=== PATIENT | female | born 1995 | race Two or more races ===

== ENCOUNTER 2017-12-09 09:56 | Outpatient (RCR) | payer MEDICAID, SELFPAY | END 2017-12-09 23:59 | LOC: NS 09:56 | PROVIDERS: Family Provider Physician Assistant; PCP Physician Assistant; Visit Provider Nurse Practitioner Family | DX: E66.01 Morbid (severe) obesity due to excess calories (principal); Z71.3 Dietary counseling and surveillance | CPT/HCPCS: 97802 ==

== ENCOUNTER 2018-01-06 09:32 | Outpatient (RCR) | payer MEDICAID, SELFPAY | END 2018-01-17 23:59 | LOC: NS 09:32 | PROVIDERS: Family Provider Physician Assistant; PCP Physician Assistant; Visit Provider Nurse Practitioner Family | DX: E66.01 Morbid (severe) obesity due to excess calories (principal); Z71.3 Dietary counseling and surveillance ==

== ENCOUNTER → 2024-12-30 | Outpatient (CLI) | payer MEDICAID, SELFPAY ==
--- NOTE | 2024-12-30 10:25 | MRI_ITS ---
PROCEDURE: LOWER EXT JOINT ONLY (ROUTINE) 12/30/2024 REASON FOR EXAM: PAIN, ASSESS LM TEAR TECHNIQUE: T1, T2, PD, LOWER EXT JOINT ONLY (ROUTINE) Multiplanar and multisequence images were obtained without IV contrast administration. COMPARISON: COMPARISON : None FINDINGS: Bone Marrow: There is no bony contusion or occult fracture. Cruciate ligaments: There is increased T2 signal and attenuation throughout the anterior cruciate ligament with a thinned appearance, with lax components, chronic grade 2-3 sprain. The posterior cruciate appears intact. Collateral ligaments: The medial collateral ligament appears intact. The lateral collateral ligament complex appears intact. There is hemorrhage deep to the medial and lateral head of the gastrocnemius, and superficial to the medial head, with a component of the ill-defined leaking Oakley's cyst. There is a edema and attenuation of the arcuate ligament. Menisci: There is a bucket-handle tear of the posterior horn and posterior body of the lateral meniscus with a displaced component in the anterior joint space. The medial meniscus appears intact. Extensor mechanism: The distal quadriceps and patellar tendons appear intact. Effusion: There is a moderate joint effusion. Cartilage: There is mild chondromalacia in the lateral compartment. MRI/Lower Ext Joint Only (Routine) IMPRESSION: There is increased T2 signal and attenuation throughout the anterior cruciate l igament with a thinned appearance, with lax components, chronic grade 2-3 sprain. There is hemorrhage deep to the medial and lateral head of the gastrocnemius, a nd superficial to the medial head, with a component of the ill-defined leaking Oakley's cyst. There is a edema and attenuation of the arcuate ligament. There is a bucket-handle tear of the posterior horn and posterior body of the l ateral meniscus with a displaced component in the anterior joint space. There is a moderate joint effusion. There is mild chondromalacia in the lateral compartment. Reading Location: [facility]
== END | disposition home or self-care (01) ==
LOC: OPMRI 09:43
PROVIDERS: PCP Physician Assistant; Referring Provider Orthopaedic Surgery Sports Medicine; Visit Provider Orthopaedic Surgery Sports Medicine
DX: M25.561 Pain in right knee (principal)
CPT/HCPCS: 73721

== ENCOUNTER 2025-02-17 05:47 | Day surgery (SDC) | payer MEDICAID, SELFPAY ==
[2025-02-17] VITALS (9 sets, daily range): BP systolic 110–154; BP diastolic 68–95; PULSE 59–71; RESP 12–18; TEMP 2.2–36.5; O2SAT 98–100; BMI 59.8
[2025-02-17 06:21] LABS: Internal QC Validated? YES +Cl - CLEAR BKGD; Pregnancy, Urine Negative Negative; Record Kit Lot#,Urine Preg 0000964736
--- NOTE | 2025-02-17 06:43 | PRE.ANES_ITS ---
ASA Classification* ASA Classification ASA Classification: 3 (morbid Obesity ) Assessment & Plan Anesthesia* Anesthesia Assessment Anesthesia Assessment: Discussed sedation and/or anesthesia options, risks, benefits, and alternatives with patient/parents/legal guardian/POA. Questions invited. The patient/parents/legal guardian/POA seems to understand and agrees to proceed with anesthesia plan. Reviewed the physical assessment, medical history, allergy history and patient home medications list prior to surgery/procedure/anesthetic and documented any changes. Performed airway and anesthesia risk assessments. Anesthesia Type Anesthesia Type: General and Block History Source History Obtained from:: Patient and Chart Anesthesia Focused Assessment* Temperature: 36 F Pulse Rate: 71 Blood Pressure: 124/90 Respiratory Rate: 14 Pulse Ox: 99 Oxygen Delivery Method: Room Air Airway Assessment Mouth opens: >3 cm Mallampati Score: II Teeth Condition: Intact Labs Anesthesia Preop lab: CBC CHEMISTRY COAG Urine Test Negative Negative Today, 06:05 Pre-Assessment Diagnosis/Proposed Procedure Planned Operative Procedure(s): RIGHT KNEE ARTHROSCOPY LATERAL MENISCUS REPAIR,POSS PARTIAL LATERAL MENISCECTOMY,POSS RECONSTRUCTION ACL Anesthesia History Anesthesia History - detail drafter: Anesthesia History - detail drafter Hx Hospitalization No 02/03/25 11:08 Any Problems With Anesthesia No 02/03/25 11:08 Cholinesterase deficiency No 02/03/25 11:08 You/Your Family Experience No 02/03/25 11:08 fever (hyperthermia) with Relationship Recent Exposure to Contagious No 02/17/25 06:40 Disease Does patient have nerve No 02/03/25 11:08 stimulator Patient instructed to have device shut off --Does patient have Pacemaker or ICD? When Was Last Pacemaker Check QUESTION #4 FULL TEXT: You/Your Family Experience fever (hyperthermia) with Anesthesia Last Oral Intake Last Oral intake: Last Oral Intake NPO since Meds taken in AM with sips of water? Meds patient instructed to take am of surgery PONV PONV - detail drafter: PONV - detail drafter Female Yes 02/03/25 11:08 HX of Motion Sickness No 02/03/25 11:08 HX of N/V After Surgery No 02/03/25 11:08 Non-Smoker No 02/03/25 11:08 Duration of Surgery greater Yes 02/03/25 11:08 than 60 minutes Number of Risk Factors 2 02/03/25 11:08 PONV Score Moderate Risk 02/03/25 11:08 Height & Weight Height & Weight: Anesthesia: Height & Weight Height 5 ft 01/07/25 09:48 Respiratory Assessment Respiratory Assessment - detail drafter: Respiratory Tract Infection Hx - detail drafter Hx Respiratory Tract Infection No 02/03/25 11:08 STOP Sleep Apnea STOP Sleep Apnea - detail drafter: STOP Sleep Apnea - detail drafter Hx Hypertension No 02/03/25 11:08 Hx Sleep Apnea No 02/03/25 11:08 CPAP BIPAP Do you snore loudly (louder No 02/03/25 11:08 than talking or can be heard Do you often feel tired/ No 02/03/25 11:08 fatigued/ sleepy during daytime? Has anyone observed you stop No 02/03/25 11:08 breathing during sleep? STOP Results Negative 02/03/25 11:08 QUESTION #5 FULL TEXT : Do you snore loudly (louder than talking or can be heard through closed doors)? Tobacco Use History Tobacco Use History - detail drafter: Tobacco Use History - detail drafter Tobacco Use Smoking Status Current every day smoker 02/03/25 11:08 Hx Tobacco Use Yes 02/03/25 11:08 Years Smoking Packs Smoked per Day Smoking Cessation Date was within the last 15 years Hx Smoking Cessation Date Hx Smoking Cessation Counseling Hematologic Medial History Hematologic Hx - detail drafter: Hematologic Medical Hx - filter press pumper Hx of Blood Transfusion No 02/03/25 11:08 Hx of Transfusion in last 3 No 02/03/25 11:08 Months Date of Last Transfusion (if within last 3 months) Ever experience any problems No 02/03/25 11:08 with transfusion(s)? Specify any problems Hx of Preganancy in last 3 No 02/03/25 11:08 Months Nurse Filling Out Transfusion DSCHRIBER 02/03/25 11:08 & Questions: Date: 02/03/25 02/03/25 11:08 Time: 11:09 02/03/25 11:08 Patient unable to answer at this time (ie. confused, unrespo /Reproduction History /Reproductive History - detail drafter: /Reproductive Hx- detail drafter Hx Now No 02/03/25 11:08 Gestational Age (in weeks): EDC: Hx Hx Para Hx Section SAB No 02/03/25 11:08 Active Medications Active Medications: Current Medications Generic Name Dose Route Start Last Admin Trade Name Freq PRN Reason Stop Dose Admin Cefazolin Sodium 3 gm/ Sodium 115 mls @ 200 mls/hr 02/17/25 07:30 Chloride IV 02/17/25 08:04 INTRAOP ONE Lactated Ringer's 1,000 mls @ 15 mls/hr 02/17/25 06:15 IV .Q48H NEHAL PFSH Medical History Wears glasses Bipolar disorder Depression Marijuana use Arthritis Shortness of breath on exertion Vapes nicotine containing substance History of irregular heartbeat Right ACL tear Chondromalacia, right knee Tear of lateral meniscus of right knee Right knee pain Home Medications ?Medication ?Instructions ?Recorded ?Last Taken ?Type dextromethorphan IR 45 1 tab PO BID 11/24/24 History mg-bupropion ER 105 mg biphasic tablet (Auvelity) lithium carbonate 150 mg capsule 150 mg PO QHS 5 02/15/25 History olanzapine 15 mg tablet 15 mg PO QHS 11/24/24 History Allergy/AdvReac Type Severity Reaction Status Date / Time bee venom protein (honey AdvReac Throat Verified 02/03/25 11:06 bee) (bee sting) Swelling Family History Other Diabetes Surgical History Hx of wisdom tooth extraction History of delivery History of hip surgery Social History household members: children Smoking Status: Former smoker alcohol intake: never Addt'l Information Additional Findings: >4 Mets prior to injury Review of Systems (Anesthesia) ROS Narrative System reviewed and no additional complaints, except as documented. Physical Exam Const alert and oriented x3 Nutritional Appearance: morbidly obese Resp normal respiratory effort and normal air movement Auscultation: clear to auscultation bilaterally Cardio regular rate and regular rhythm Neuro oriented x3 and moves all extremities
[2025-02-17] MEDS: Lactated Ringers 1,000 ML 15 ML IV (06:47)
--- NOTE | 2025-02-17 07:06 | PCM.HP.STD ---
HPI - General HPI Narrative SANCHEZ CASTREJON, is a 30 F who presents for right knee arthroscopy, lateral meniscus repair possible partial lateral meniscectomy, possible anterior cruciate ligament reconstruction. no change to h and p. right knee marked. plan for block. OK to WBAT in brace full extension. plan for asa 81 bid after for vte prophylaxis. rab, post op instructions, narcotic counselling. ok to proceed. no further questions. MR#: [id number] Acct: [id number] Name: SANCHEZ CASTREJON Rep #: [id number] : 1995 Provider: Dr. Gerald Wynn MD Age/Sex: 29/F Location: [facility] [place] Status: Signed Intake Vital Signs 11/24/2508:54 01/07/2509:48 Height 5 ft 5 ft Weight: 297 lb 6 oz 290 lb BMI 58.1 56.6 Intake Visit Reasons: RIGHT KNEE Chief Complaint: Right Knee MRI review Accompanied by: Self Is patient in pain?: Yes Pain scale (1-10): 5 Allergies bee venom protein (honey bee) (bee sting) Adverse Reaction (Verified 01/07/25 09:50) Throat Swelling Medications ?Medication ?Instructions ?Recorded ?Confirmed ?Type dextromethorphan IR 45 tab PO 11/24/24 01/07/25 History mg-bupropion ER 105 mg biphasic tablet (Auvelity) lithium carbonate 150 mg capsule 150 mg PO QHS 11/24/24 01/07/25 History olanzapine 15 mg tablet 15 mg PO QDAY 11/24/24 01/07/25 History Have you fallen in the past year?: No PFSH Medical History Right ACL tear Chondromalacia, right knee Tear of lateral meniscus of right knee Right knee pain Surgical History History of delivery History of hip surgery Family History Other Diabetes Social History household members: children Smoking Status: Former smoker alcohol intake: never HPI RIGHT KNEE Details: This documentation accurately reflects the service provided and the decisions made by me, Dr. Gerald Wynn MD 01/07/25 0852. Part of today?s visit was documented by [ ], acting as scribe. SANCHEZ CASTREJON is a 29 year old F here today for FU R knee MRI. Still feels unstable, giving way. Supplemental Info [facility] [address] [place], [place] [address] Lower Ext Joint Only (Routine) MR#: [id number] Acct: [id number] Name: SANCHEZ CASTREJON Rep #: [id number] : 1995 From: Gregg Matias MD PCP: MARK Curtis Status: REG CLI Study: Lower Ext Joint Only (Routine) Date of Exam: 12/30/24 Exam# [id number] Ordering Dr: Gerald Wynn MD PROCEDURE: LOWER EXT JOINT ONLY (ROUTINE) 12/30/2024 REASON FOR EXAM: PAIN, ASSESS LM TEAR TECHNIQUE: T1, T2, PD, LOWER EXT JOINT ONLY (ROUTINE) Multiplanar and multisequence images were obtained without IV contrast administration. COMPARISON: COMPARISON : None FINDINGS: Bone Marrow: There is no bony contusion or occult fracture. Cruciate ligaments: There is increased T2 signal and attenuation throughout the anterior cruciate ligament with a thinned appearance, with lax components, chronic grade 2-3 sprain. The posterior cruciate appears intact. Collateral ligaments: The medial collateral ligament appears intact. The lateral collateral ligament complex appears intact. There is hemorrhage deep to the medial and lateral head of the gastrocnemius, and superficial to the medial head, with a component of the ill-defined leaking Oakley's cyst. There is a edema and attenuation of the arcuate ligament. Menisci: There is a bucket-handle tear of the posterior horn and posterior body of the lateral meniscus with a displaced component in the anterior joint space. The medial meniscus appears intact. Extensor mechanism: The distal quadriceps and patellar tendons appear intact. Effusion: There is a moderate joint effusion. Cartilage: There is mild chondromalacia in the lateral compartment. MRI/Lower Ext Joint Only (Routine) IMPRESSION: There is increased T2 signal and attenuation throughout the anterior cruciate ligament with a thinned appearance, with lax components, chronic grade 2-3 sprain. There is hemorrhage deep to the medial and lateral head of the gastrocnemius, and superficial to the medial head, with a component of the ill-defined leaking Oakley's cyst. There is a edema and attenuation of the arcuate ligament. There is a bucket-handle tear of the posterior horn and posterior body of the lateral meniscus with a displaced component in the anterior joint space. There is a moderate joint effusion. There is mild chondromalacia in the lateral compartment. Reading Location: [facility] Michelle independently reviewed the imaging. Concur with radiologist report. Coding Level of Care Code Off vis,est,level 4 Diagnoses Right knee pain M25.561 Tear of lateral meniscus of right knee S83.281A Chondromalacia, right knee M94.261 Right ACL tear S83.511A Assessment and Plan Assessment and Plan (1) Right knee pain: Status: Acute Plan: 29-year-old female with right knee lateral meniscus bucket-handle tear, possible ACL tear. This is recommended to be fixed to prevent long-term further tearing of the meniscus as well as degenerative changes and locking up and mechanical symptoms of the knee. Nonsurgical treatment is an option but not recommended here. Surgery would be in the form of a right knee arthroscopy, lateral meniscus repair possible partial lateral meniscectomy, possible anterior cruciate ligament reconstruction (could have been there for years). Explained the recovery associated with this 6 weeks on crutches with extended knee weightbearing in 9 months before return back to sports and other demanding activities. Patient understands wishes to proceed with surgery. Patient has a very elevated BMI this is a risk factor for surgery failing or other problems like VTE. Pros and cons risks and benefits were discussed with the patient including but not limited to infection, pain, stiffness, bleeding, damage to surrounding structures, neurovascular injury, recurrence or retear, failure or wear of hardware or fixation, instability, fracture, deep vein thrombosis and pulmonary embolism, anesthetic risks, , patient dissatisfaction, need for further surgery and other risks. Patient understood and wished to proceed with surgery, and signed the informed consent documentation. (2) Tear of lateral meniscus of right knee: Status: Acute (3) Chondromalacia, right knee: Status: Acute (4) Right ACL tear: Status: Acute Clinical Quality Measures Falls Risk Screening/Assistive Devices Have you fallen in the past year?: No Ortho Exam General General: Yes no acute distress Neurologic: Yes alert and Yes oriented x3 Psychologic: Yes reasonable and appropriate [facility] Medical History Wears glasses Bipolar disorder Depression Marijuana use Arthritis Shortness of breath on exertion Vapes nicotine containing substance History of irregular heartbeat Right ACL tear Chondromalacia, right knee Tear of lateral meniscus of right knee Right knee pain Home Medications ?Medication ?Instructions ?Recorded ?Last Taken ?Type dextromethorphan IR 45 1 tab PO BID 11/24/24 02/15/25 History mg-bupropion ER 105 mg biphasic tablet (Auvelity) lithium carbonate 150 mg capsule 150 mg PO QHS 11/24/24 02/15/25 History olanzapine 15 mg tablet 15 mg PO QHS 11/24/24 02/15/25 History Allergy/AdvReac Type Severity Reaction Status Date / Time bee venom protein (honey AdvReac Throat Verified 02/03/25 11:06 bee) (bee sting) Swelling Family History Other Diabetes Surgical History Hx of wisdom tooth extraction History of delivery History of hip surgery Social History household members: children Smoking Status: Former smoker alcohol intake: never Vital Signs Vital Signs Vital Signs: 02/17/25 06:40 02/17/25 06:42 02/17/25 06:48 Temperature 97.4 F L 36 F L Temperature Source Temporal Pulse Rate 71 71 Respiratory Rate 16 14 Respiratory Pattern Normal Blood Pressure 124/90 H 124/90 H Blood Pressure Mean 101 Blood Pressure Source Monitor Blood Pressure Position Sitting Blood Pressure Location Left Forearm Pulse Ox 100 99 Oxygen Delivery Method Room Air Room Air Weight Weight: 306 lb 7.08 oz Body Mass Index (BMI) 59.8 Results Lab / Micro Data Labs: Laboratory Results - last 24 hr 02/17/25 06:05: Urine Test Negative
[2025-02-17] MEDS: Midazolam 2 MG/2 ML Syringe IV (07:14)
[2025-02-17] MEDS: Cefazolin 1 GM/5 ML Vial 3 GM IV (07:36)
[2025-02-17] MEDS: Lidocaine 1% (5 ml sdv) 5 ML Vial 10 ML IV (07:41)
[2025-02-17] MEDS: Epinephrine (1 mg/ml) 1 MG/ML VIAL (07:55)
[2025-02-17] MEDS: TRANEXAMIC ACID 1,000 MG/10 ML ML 1000 MG IV (08:30)
[2025-02-17] MEDS: fentaNYL 100 MCG/2 ML Ampul IV (08:32)
[2025-02-17] MEDS: dexMEDEtomidine 200 MCG/2 ML ML 40 MCG IV (09:44)
--- NOTE | 2025-02-17 09:48 | EX.PCM.DISCH ---
Discharge Instructions Diet Discharge Diet: No restrictions Activity Discharge Activity: Return to Normal Activity and May Shower Ice area for (Minutes): 10 Weight Bearing Status: Weight bearing as tolerated Lifting Restrictions: keep leg straight in brace for walking, with crutches and brace 6 weeks Keep extremity elevated above heart level: Operative Extremity Dressing / Incision Call your doctor if your incision/area has: Continuous Slow Oozing, Sudden Increased Bleeding, Increased Pain/ Swelling, Increased Redness, Foul Smelling Discharge and Swelling at the incision site Call your doctor if you observe: Fever of 101 or Higher, Coldness, Increased Pain and Numbness or Tingling Change Dressing in: leave in place till F/U Cleanse incision/area with: Do not get Incision Wet Follow Up Care Please Follow Up With: Gerald Wynn MD When: within 2 weeks Test Results: Test results from this visit will be discussed in further detail at your follow-up appointment, if applicable. Discharge Plan Admission Attending Provider: Gerald Wynn Primary Care Provider: Erin Ruiz Instructions Patient Instructions: ACL Injury Surg Print Language: Nepali Discharge Orders/Prescriptions Prescriptions: New oxycodone-acetaminophen [Percocet] 5-325 mg tablet 1 tab PO Q4H MDD 6 PRN (Reason: pain) 5 Days Qty: 20 0RF aspirin 81 mg tablet,delayed release (DR/EC) 81 mg PO BID MDD 2 30 Days Qty: 60 0RF No Action Auvelity 45-105 mg tablet, IR and ER, biphasic 1 tab PO BID lithium carbonate 150 mg capsule 150 mg PO QHS olanzapine 15 mg tablet 15 mg PO QHS Referrals / Follow Up: Gerald Wynn MD [Med Staff - Active Staff, Orthopedics] Modesto Miranda PA [Med Staff - Adv Practice Prof, Internal Medicine] Disposition Disposition (needs filled in before D/C Order can be placed): Home, Self Care
--- NOTE | 2025-02-17 09:52 | OP.PCM_ITS ---
Procedures Musculoskeletal [id number]: Other Procedure See Report Operative Report (Standard) Operative Information Date of Procedure: 02/17/25 Pre-Operative Diagnosis: R knee acl tear and LM tear Post-Operative Diagnosis: same Surgery/Procedure Performed: R knee quads tendon ACLR and LM repair marketing budget analyst: Yes Silica Dry Press Helper: ludmila Tasks completed by assistant statistician: Retracting Additional office assistant receptionist?: No Type of Anesthesia: Block,Regional and General RN Documented Start/Stop Times: Operation Date: 02/17/25 07:30 Case Time Into Pre-Op 02/17/25 06:09 Anesthesia Start 02/17/25 07:36 Into Room 02/17/25 07:36 Procedure Start 02/17/25 07:55 Procedure End 02/17/25 09:41 Anesthesia End 02/17/25 09:48 Out of Room 02/17/25 09:48 Out of Pre-Op Procedure Start Time: 07:55 Procedure Stop Time: 09:41 Select all DRAINS/GRAFTS/IMPLANTS that apply: Graft Graft details: quads autograft Estimated Blood Loss: 50 Specimen collected: No Description of surgery: Patient brought to the operating room theater. Placed supine on the table. General anesthesia induced. 3 g IV Ancef administered prior to the procedure. 1g iv TXA also at start of case. SCD on the nonoperative leg. All bony prominences padded. Tourniquet applied to right thigh appropriately padded. Lower extremity prepped and draped in the usual sterile fashion allowing over 3 minutes drying time prior to draping. Stress positioner to the patient's right side. Preoperative timeout performed to confirm the site patient and the surgery. Began by elevating the limb inflating the tourniquet to 250, then to 300 mmHg eventually. Use standard anterolateral and anteromedial arthroscopy portals. Did a full diagnostic arthroscopy. Cartilage in all 3 compartments was normal, slight fraying tibial side lateral plateau. No loose bodies. Lateral and medial compartment was normal no tears normal cartilage. ACL had a full-thickness tear I debrided the remnant identified the empty lateral back wall identified the capsular reflection. Lateral meniscus bucket handle tear from posterior horn to mid body. Reduced. Rasped edges of meniscus tear. Used 5 arthrex all inside meniscus repair device sutures, vertical mattress. Sutures cut short, and stable after. I then turned my attention to obtaining the quadriceps tendon autograft. I made a transverse incision centered at the quadriceps tendon insertion at the patella. Carried the dissection down through skin and subcutaneous tissue achieved meticulous hemostasis. Identified the distal quadriceps took a one third central strip of this for about 6.5 cm long and a 9 mm size graft with the quadriceps pro Arthrex harvester. Truncated the graft to get to the back table. Shortened to 63 mm long. I used the standard technique with the fiber stitch and whip stitching fiber tags on each hand with the button on the femoral side on the ABS loop on the tibial side. This measured 9mm tibia, and 9mm femur. Graft placed on tension. I turned my attention back to the knee. I used the all inside retrograde drilling technique using a third-generation flip cutter drills. Placed the femoral tunnel low and posterior at the origin for the prior ACL retrograde drilled for 3 cm for a 4 cm long total tunnel 9mm cleared away any bone dust and passed the sutures out the anterior medial portal which I had also placed a passport cannula. I then drilled for the tibial side in line with the anterior horn lateral meniscus. Again the tunnel length was 3.5 cm in a retrograde drilled 9 mm for 2.5 cm total tunnel length cleared away any bone dust and then passed the suture through the anterior medial portal. I then passed the ACL up into the femoral tunnel and then back down into the tibial tunnel flipping the button on the lateral aspect of the femur. I had marked the graft at 2 cm and then pulled on the free ends of the femoral side to deliver the graft into the tunnel. I then cycled the knee 15 times and then attach the tibial button to the ABS button loop and pulled on the free ends of the suture to tighten the graft up in place. This achieved excellent fixation limited the pivot shift and the Efraín. Suture was cut short. Also had brought the internal brace out through the ABS button on the tibial side and then attach this without tension in full extension to a Arthrex 4.75 mm bio composite swivel lock anchor for the internal brace construct. The tourniquet let down meticulous hemostasis achieved wounds irrigated. Subcu taneous tissue closed with 2-0 Vicryl suture skin with 3-0 Monocryl. Skin cleaned with wet dry dressing followed by application of Steri-Strips Adaptic 4 x 4 gauze ABD dressing and loose wrapped SUSHIL bandage. Patient woken up from the GA, transfer off the operating table taken to postanesthetic care unit in stable condition. All sponge needle instrument counts were correct no complications plan to the patient discharged home according to day surgery criteria follow-up in the office this week. WBAT and crutches 6 weeks. ASA 81 BID for 30 days for VTE prophylaxis. cpt 79295, 98842 Surgical Findings: as above Complications Complications: No Admit VTE Documentation VTE Present on Admission: No VTE Mechan Device Prophylaxis: SCD's VTE Pharm Prophylaxis ordered?: Yes
--- NOTE | 2025-02-17 09:53 | PCM.POST.ANE ---
Anesthesia: Postop Eval I Current Vital Signs Temperature: 97.7 F Pulse Rate: 61 Blood Pressure: 154/95 Respiratory Rate: 18 Pulse Ox: 98 Assessment Airway patent: Yes Spontaneous unlabored respirations: Yes nausea: No Vomiting: No Anesthesia Complication: No Fluid Hydration Crystalloid volume administer (ml): 1,300 Total IV fluid infused: 1,300 Progress Note Anesthesia document: Postop Eval 1 completed: Yes
--- NOTE | 2025-02-17 11:35 | POSTOPAN2_ITS ---
Anesthesia Postop Eval I Sum Postop Eval Completion status Anesthesia document: Postop Eval 1 completed: Yes Anesthesia Postop Eval I Summary Anesthesia Postop Eval I Summary: Anesthesia Postop Eval I: Assessment Summary Airway patent Yes 02/17/25 09:53 MATERIAL DAMAGE ADJUSTER.[email or web address] Spontaneous unlabored Yes 02/17/25 09:53 MATERIAL DAMAGE ADJUSTER.TNES respirations Mental status nausea No 02/17/25 09:53 MATERIAL DAMAGE ADJUSTER.TNES Vomiting No 02/17/25 09:53 MATERIAL DAMAGE ADJUSTER.TNES Anesthesia Postop Eval I: Fluid Summary Crystalloid volume administer 1,300 02/17/25 09:53 MATERIAL DAMAGE ADJUSTER.TNES (ml) Colloids volume administered ( ml) Blood Product volume administered (ml) Total IV fluid infused 1,300 02/17/25 09:53 MATERIAL DAMAGE ADJUSTER.TNES Anesthesia Postop Eval I: Summary Notes Anesthesia Complication No 02/17/25 09:53 MATERIAL DAMAGE ADJUSTER.TNES Anesthesia Complication Comment: Post-operative progress note Anesthesia: Postop Eval II Evaluation Mental status: Awake and Calm Pain Level: 2 nausea: No Vomiting: No Complications Anesthesia Complication: No
--- NOTE | 2025-02-17 11:35 | PCM.POSTANE2 ---
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.[email or web address] Spontaneous unlabored Yes 02/17/25 09:53 PAINTER AND PAPERHANGER APPRENTICE.TNES respirations Mental status nausea No 02/17/25 09:53 PAINTER AND PAPERHANGER APPRENTICE.TNES Vomiting No 02/17/25 09:53 PAINTER AND PAPERHANGER APPRENTICE.TNES Anesthesia Postop Eval I: Fluid Summary Crystalloid volume administer 1,300 02/17/25 09:53 PAINTER AND PAPERHANGER APPRENTICE.TNES (ml) Colloids volume administered ( ml) Blood Product volume administered (ml) Total IV fluid infused 1,300 02/17/25 09:53 PAINTER AND PAPERHANGER APPRENTICE.TNES Anesthesia Postop Eval I: Summary Notes Anesthesia Complication No 02/17/25 09:53 PAINTER AND PAPERHANGER APPRENTICE.TNES Anesthesia Complication Comment: Post-operative progress note Anesthesia: Postop Eval II Evaluation Mental status: Awake and Calm Pain Level: 2 nausea: No Vomiting: No Complications Anesthesia Complication: No
== END 2025-02-17 11:31 | disposition home or self-care (01) ==
LOC: SDC 05:49 → AC 05:51
PROVIDERS: Anesthesiology; Referring Provider Orthopaedic Surgery Sports Medicine; Visit Provider Orthopaedic Surgery Sports Medicine
PROC: (CPT 29888; principal; 2025-02-17 07:10)
DX: S83.511A Sprain of anterior cruciate ligament of right knee, initial encounter (principal); F31.9 Bipolar disorder, unspecified; E66.01 Morbid (severe) obesity due to excess calories; Z68.43 Body mass index [BMI] 50.0-59.9, adult; S83.281A Other tear of lateral meniscus, current injury, right knee, initial encounter; M94.261 Chondromalacia, right knee; Z87.891 Personal history of nicotine dependence; X58.XXXA Exposure to other specified factors, initial encounter
CPT/HCPCS: 29888; 29882; 64450; 01400; 81025; C1713; J2405